=== PATIENT | male | born 1950 | race Hispanic/Latino ===

== ENCOUNTER 2017-07-02 14:31 | Inpatient (IN) | payer SELFPAY ==
[~2017-07-02] VITALS: Ht 160 cm; Wt 54.7 kg
[2017-07-02] MEDS ORDERED: ONDANSETRON HCL 4 MG/2 ML VIAL ONE (15:12)
[2017-07-02] MEDS ORDERED: MORPHINE SULFATE 4 MG/1ML SYG ONE (15:13)
[2017-07-02 15:41] LABS: HEMATOCRIT 33.4 % (42-54); MEAN CORPUSCULAR HEMOGLOBIN 30.6 pg (27.0-33.0); MEAN CORPUSCULAR HGB CONC 34.1 g/dL (32.0-36.0); MEAN CORPUSCULAR VOLUME 89.7 fL (79-99); PLATELET COUNT (AUTO) 476 K/uL (130-400); RED BLOOD CELL COUNT(AUTO) 3.73 MIL/uL (4.50-6.20); RED CELL DISTRIBUTION WIDTH 14.5 % (11.0-15.5); WHITE BLOOD COUNT (AUTO) 17.1 K/uL (4.8-10.8)
[2017-07-02 16:05] LABS: BAND NEUTROPHILS % (MANUAL) 3 % (0-2); BASOPHILS % (MANUAL) 1 % (0-2); EOSINOPHILS % (MANUAL) 1 % (1-6); LYMPHOCYTES % (MANUAL) 2 % (22-44); MAN.DIFF COMMENT-IMPRESSION MANUAL DIFFERENTIAL; METAMYELOCYTES % 2 % (0-0); MONOCYTES % (MANUAL) 7 % (2-9); SEGMENTED NEUTROPHILS % 84 % (40-70)
[2017-07-02 16:06] LABS: PLATELET MORPHOLOGY COMMENT SLIGHT INCREASED
[2017-07-02 16:44] LABS: CREATININE 0.7 mg/dL (0.5-1.5); POTASSIUM 3.6 mmol/L (3.5-5.1)
[2017-07-02 16:49] LABS: ALBUMIN 2.2 g/dL (3.5-5.0); BILIRUBIN,TOTAL 0.5 mg/dL (0.2-1.0); TOTAL PROTEIN, SERUM 6.9 g/dL (6.0-8.3)
[2017-07-02] MEDS ORDERED: IOPAMIDOL-370 75 ML VIAL IV ONE (17:30)
[2017-07-02] MEDS ORDERED: ACETAMINOPHEN 325 MG TAB ONE (17:50)
[2017-07-02] MEDS ORDERED: MEROPENEM 1 GM VIAL ONE (20:25)
[2017-07-03] MEDS ORDERED: CEFTRIAXONE 1GM/D5W 50ML 50 ML IV SCH (02:00)
[2017-07-03] MEDS ORDERED: MORPHINE SULFATE 2 MG/ML 1ML SYG IV PRN (02:00)
[2017-07-03] MEDS ORDERED: MEROPENEM 1GM IVPB PREMIXED 1 GM IV SCH (02:15)
[2017-07-03] MEDS ORDERED: CEFTRIAXONE SODIUM 1 GM ONE (02:30)
[2017-07-03 05:25] LABS: BASOPHILS % (AUTO) 0.8 % (0.0-5.0); EOSINOPHILS % (AUTO) 1.9 % (0.0-8.0); HEMATOCRIT 32.9 % (42-54); LYMPHOCYTES % (AUTO) 15.5 % (21.0-51.0); MEAN CORPUSCULAR HEMOGLOBIN 30.1 pg (27.0-33.0); MEAN CORPUSCULAR HGB CONC 33.8 g/dL (32.0-36.0); MEAN CORPUSCULAR VOLUME 89.2 fL (79-99); MONOCYTES % (AUTO) 9.1 % (3.0-13.0); NEUTROPHILS % (AUTO) 72.7 % (40.0-77.0); PLATELET COUNT (AUTO) 513 K/uL (130-400); RED BLOOD CELL COUNT(AUTO) 3.69 MIL/uL (4.50-6.20); RED CELL DISTRIBUTION WIDTH 14.7 % (11.0-15.5); WHITE BLOOD COUNT (AUTO) 12.9 K/uL (4.8-10.8)
[2017-07-03 05:33] LABS: BILIRUBIN,TOTAL 0.3 mg/dL (0.2-1.0); CREATININE 0.8 mg/dL (0.5-1.5); PHOSPHORUS 3.2 mg/dL (2.5-4.9); POTASSIUM 3.5 mmol/L (3.5-5.1); TOTAL PROTEIN, SERUM 6.6 g/dL (6.0-8.3)
[2017-07-03] MEDS ORDERED: LACTATED RINGERS 1000ML 1,000 ML IV ONE (07:39)
[2017-07-03] MEDS ORDERED: ENOXAPARIN SODIUM 40 MG/0.4 ML SYRINGE SQ ONE (07:40)
[2017-07-03] MEDS ORDERED: MEROPENEM 1 GM VIAL ONE (07:40)
[2017-07-03] MEDS ORDERED: FAMOTIDINE/PF 20 MG/2 ML VIAL IV ONE (07:41)
[2017-07-03] MEDS: MEROPENEM 1 GM VIAL IVP SCH ×3 (08:00→23:29)
[2017-07-03] MEDS: FAMOTIDINE/PF 20 MG/2 ML VIAL IV SCH ×2 (09:00→22:12)
[2017-07-03] MEDS: ENOXAPARIN SODIUM 40 MG/0.4 ML SYRINGE SQ SCH (09:00)
[2017-07-03 15:16] VITALS: BP 102/63
[2017-07-03] MEDS: LACTATED RINGERS 1000ML 1,000 ML IV SCH ×2 (17:07→23:05)
[2017-07-03 19:15] VITALS: BP 108/66
[2017-07-03 23:05] VITALS: BP 107/66
[2017-07-04] VITALS (20 sets, daily range): BP systolic 91–146; BP diastolic 55–79
[2017-07-04] MEDS: CEFTRIAXONE SODIUM 1 GM IVP SCH (04:02)
[2017-07-04 06:12] LABS: BASOPHILS % (AUTO) 0.8 % (0.0-5.0); EOSINOPHILS % (AUTO) 2.4 % (0.0-8.0); HEMATOCRIT 31.2 % (42-54); LYMPHOCYTES % (AUTO) 10.6 % (21.0-51.0); MEAN CORPUSCULAR HEMOGLOBIN 30.5 pg (27.0-33.0); MEAN CORPUSCULAR HGB CONC 34.5 g/dL (32.0-36.0); MEAN CORPUSCULAR VOLUME 88.6 fL (79-99); MONOCYTES % (AUTO) 7.5 % (3.0-13.0); NEUTROPHILS % (AUTO) 78.7 % (40.0-77.0); PLATELET COUNT (AUTO) 555 K/uL (130-400); RED BLOOD CELL COUNT(AUTO) 3.52 MIL/uL (4.50-6.20); RED CELL DISTRIBUTION WIDTH 14.8 % (11.0-15.5); WHITE BLOOD COUNT (AUTO) 14.8 K/uL (4.8-10.8)
[2017-07-04 06:20] LABS: INR 1.09 (0.85-1.15); PROTHROMBIN TIME 11.4 SEC (9.6-11.6)
[2017-07-04 06:25] LABS: ALBUMIN 1.8 g/dL (3.5-5.0); BILIRUBIN,TOTAL 0.3 mg/dL (0.2-1.0); CREATININE 0.8 mg/dL (0.5-1.5); POTASSIUM 3.6 mmol/L (3.5-5.1)
[2017-07-04] MEDS: LACTATED RINGERS 1000ML 1,000 ML IV SCH ×3 (07:54→20:38)
[2017-07-04] MEDS: MEROPENEM 1 GM VIAL IVP SCH ×2 (08:23→17:15)
[2017-07-04] MEDS: ENOXAPARIN SODIUM 40 MG/0.4 ML SYRINGE SQ SCH (08:26)
[2017-07-04] MEDS: FAMOTIDINE/PF 20 MG/2 ML VIAL IV SCH ×2 (08:26→20:39)
[2017-07-04] MEDS ORDERED: PROPOFOL 10 MG/ML 20ML VIAL IV ONE (11:59)
[2017-07-05] MEDS: MEROPENEM 1 GM VIAL IVP SCH ×3 (00:41→17:44)
[2017-07-05] MEDS: CEFTRIAXONE SODIUM 1 GM IVP SCH (02:06)
[2017-07-05] MEDS: LACTATED RINGERS 1000ML 1,000 ML IV SCH ×3 (02:06→17:45)
[2017-07-05 03:40] VITALS: BP 117/66
[2017-07-05 03:47] LABS: HEMATOCRIT 30.5 % (42-54); MEAN CORPUSCULAR VOLUME 88.6 fL (79-99); PLATELET COUNT (AUTO) 566 K/uL (130-400); RED BLOOD CELL COUNT(AUTO) 3.44 MIL/uL (4.50-6.20); RED CELL DISTRIBUTION WIDTH 14.5 % (11.0-15.5); WHITE BLOOD COUNT (AUTO) 15.8 K/uL (4.8-10.8)
[2017-07-05 04:02] LABS: CREATININE 0.7 mg/dL (0.5-1.5); POTASSIUM 3.6 mmol/L (3.5-5.1)
[2017-07-05 08:00] VITALS: BP 117/68
[2017-07-05] MEDS: FAMOTIDINE/PF 20 MG/2 ML VIAL IV SCH ×2 (09:38→20:40)
[2017-07-05] MEDS: ENOXAPARIN SODIUM 40 MG/0.4 ML SYRINGE SQ SCH (09:38)
[2017-07-05 12:00] VITALS: BP 114/70
[2017-07-05 16:00] VITALS: BP 118/70
[2017-07-05 19:44] VITALS: BP 110/67
[2017-07-06] VITALS: BP 101/61
[2017-07-06] MEDS: MEROPENEM 1 GM VIAL IVP SCH ×2 (00:29→12:16)
[2017-07-06] MEDS: CEFTRIAXONE SODIUM 1 GM IVP SCH (02:01)
[2017-07-06 03:58] VITALS: BP 106/65
[2017-07-06] MEDS: LACTATED RINGERS 1000ML 1,000 ML IV SCH (06:14)
[2017-07-06 08:00] VITALS: BP 99/65
[2017-07-06 11:59] VITALS: BP 107/66
[2017-07-06] MEDS: FAMOTIDINE/PF 20 MG/2 ML VIAL IV SCH (12:16)
[2017-07-06] MEDS: ENOXAPARIN SODIUM 40 MG/0.4 ML SYRINGE SQ SCH (12:19)
[2017-07-06] MEDS ORDERED: PANT40TA PO (14:31)
[2017-07-06] MEDS ORDERED: AMOX-429 PO (14:31)
== END 2017-07-06 17:01 | disposition home or self-care (01) | DRG 438 ==
LOC: EDH 14:31 → EDHIP 14:32 → 3AH 07-03 15:13
PROVIDERS: ADMIT Family Medicine; ATTEND Family Medicine
PROC: 0FBG8ZX Excision of Pancreas, Via Natural or Artificial Opening Endoscopic, Diagnostic (ICD-10-PCS; principal; 2017-07-04)
DX: K86.3 Pseudocyst of pancreas (principal); K85.90 Acute pancreatitis without necrosis or infection, unspecified; K76.89 Other specified diseases of liver; E11.9 Type 2 diabetes mellitus without complications; K86.9 Disease of pancreas, unspecified; K86.1 Other chronic pancreatitis; Z90.49 Acquired absence of other specified parts of digestive tract; Z87.891 Personal history of nicotine dependence
CPT/HCPCS: 36415; 43232; 74177; 80048; 80053; 80061; 82150; 82948; 83605; 83690; 83735; 84100; 84484; 85025; 85027; 85610; 86316; 87040; 88173; 88305; 93005; A4218; J0696; J1650; J2185; J2270; J2405; J2704; J3490; J7120; Q9967